=== PATIENT | female | born 1985 | race Caucasian/White ===

== ENCOUNTER 2016-09-28 13:00 | Inpatient (IN) | payer MEDICARE, MEDICAID ==
[~2016-09-28] VITALS: Ht 170.2 cm; Wt 72.6 kg
--- NOTE | ~2016-09-28 | PN ---
Unit #: [id number] #: [id number] Patient: JAE TRACY [id number] [facility] [address] [place] [address] [id number] I MR#: [id number] NAME: JAE TRACY ROOM: P210 Age: 31 Sex: F Admission Date: 09/28/2016 : 1985 Attending Physician: Pavan Montgomery M.D. Admitting Physician: Pavan Montgomery M.D. Primary Care Physician: Primary Care Physician Alee ALTAMIRANO NOTES DATE 09/30/2016 DISCUSSION The patient remains dysphoric and does report some sedation with reinitiation of her psychotropic medications. Otherwise she is pleasant and cooperative and we continue current treatment. Dictated by... Pavan Montgomery M.D. CB/markie TD: 09/30/2016 22:38 JOB #: [id number] TALI PROGRESS NOTES Page 1 of 1 X Pavan Montgomery MD X PROGRESS NOTE
--- NOTE | ~2016-09-28 | PA ---
Unit #: [id number] #: [id number] Patient: JAE TRACY [id number] [place] [address] [id number] MR#: [id number] NAME: JAE TRACY. ROOM: P210 Age: 31 Sex: F Admission Date: 09/28/2016 : 1985 Date of Assessment: 09/29/2016 Attending Physician: Pavan Montgomery M.D. Admitting Physician: Pavan Montgomery M.D. Primary Care Physician: Primary Care Physician No PSYCHIATRIC ASSESSMENT IDENTIFYING INFORMATION The patient is a 31-year-old white female well known to this physician. She is admitted voicing positive suicidal ideation and abuse of methamphetamine. CHIEF COMPLAINT None given. INFORMANT Patient, reliability is good. HISTORY OF PRESENT ILLNESS The patient is a 31-year-old white female last admitted to this facility in April of 2015. She had been a fairly "frequent flyer" at this facility but has not been hospitalized in nearly year and a half. The patient reports that she has been using methamphetamine. She is residing at this [place] [facility] and is currently on no prescribed psychotropic medications and has been offered prescribed psychotropic medications for some time. These include Abilify, BuSpar, and Topamax. The patient wishes to restart these medications when seen today. She was voicing positive suicidal ideation with plan to overdose. For more complete history of present illness, please refer to previously dictated notes. PAST PSYCHIATRIC HISTORY Reviewed, no changes. PAST MEDICAL HISTORY Reviewed, no changes. MEDICATIONS Abilify, BuSpar, Synthroid, Topamax, and Vistaril. ALLERGIES Valproic acid, Risperdal, Paxil, azithromycin, Wellbutrin, sulfa, and Depakote. FAMILY HISTORY Reviewed, no changes. SOCIAL HISTORY The patient is currently residing at the [facility]. She reports that her methamphetamine use is as noted previously, and is a Unit #: [id number] #: [id number] Patient: JAE TRACY smoker. MENTAL STATUS EXAMINATION Examination at this time reveals the patient to be an obese white female appearing stated age. She is in no apparent physical distress at the time of examination. She is awake, alert, and oriented in all spheres. Her mood is dysphoric, her affect blunted. Speech is generally well coherent. There are no gross deficits in memory or cognition noted. Intelligence is judged to be in the average range based on fund of knowledge. The patient is cooperative throughout the interview. She is currently endorsing positive suicidal ideation. She denies homicidal ideation. She denies any psychotic symptoms. Her judgment and insight appear to be reasonably intact. ASSETS AND LIABILITIES The patient's assets: Motivation for change. Liabilities: Poor compliance with treatment. Ongoing methamphetamine use. DIAGNOSTIC IMPRESSION 1. Bipolar disorder, depressed phase. 2. Methamphetamine use disorder. 3. Obesity. 4. Hypothyroidism. TREATMENT PLAN We will restart the patient's previously prescribed medications, and suicide precautions remain in place. She has done well when participating in the intensive outpatient program in the past, and referral for that program will take place upon discharge from the hospital which should take place within 3 to 7 days. Dictated by... Pavan Montgomery M.D. JEN/froy TD: 09/29/2016 12:43 JOB #: [id number] PSYCHIATRIC ASSESSMENT Page 1 of 1 X Pavan Montgomery MD X PSYCHIATRIC ASSESSMENT
--- NOTE | ~2016-09-28 | HP ---
Unit #: [id number] #: [id number] Patient: JAE TRACY [id number] [place] [address] [id number] MR#: [id number] NAME: JAE TRACY. ROOM: P210 Age: 31 Sex: F Admission Date: 09/28/2016 : 1985 Attending Physician: Pavan Montgomery M.D. Admitting Physician: Pavan Montgomery M.D. Primary Care Physician: Primary Care Physician No HISTORY AND PHYSICAL HISTORY OF PRESENT ILLNESS The patient is a 31-year-old female admitted to [address] [place] [address] on 09/28/2016 for suicidal ideations and methamphetamine abuse. PAST MEDICAL HISTORY 1. Hypothyroidism. 2. Seizure disorder. 3. Obesity. 4. History of anemia. 5. History of cervical dysplasia. 6. History of HSV. 7. GERD. 8. Methamphetamine abuse. PAST SURGICAL HISTORY Appendectomy. ALLERGIES Sulfa, valproic acid, divalproex, azithromycin, Paxil, Risperdal, bupropion, sertraline, Zyprexa and Geodon. SOCIAL HISTORY She is disabled. She lives alone. She uses alcohol and marijuana socially, methamphetamines 2 to 3 grams daily. FAMILY HISTORY Noncontributory. REVIEW OF SYSTEMS CONSTITUTIONAL: No fever or chills. HEENT: Denies any sore throat, ear pain or runny nose. CARDIOVASCULAR: Denies chest pain, irregular heart rhythm or palpitations. CHEST: Denies shortness of breath or cough. No hemoptysis. GASTROINTESTINAL: Denies nausea, vomiting, diarrhea or chronic constipation. ENDOCRINE: Denies history of increased thirst or urination. No recent significant weight loss or gain. GENITOURINARY: Denies dysuria, frequency, or hematuria. SKIN: Denies any rashes. HEMATOLOGIC: Denies history of increased bleeding or bruising. MUSCULOSKELETAL: Denies any hot, swollen joints. No generalized muscle pain. NEUROLOGIC: Denies problems with vision or speech. No frequent, severe Unit #: [id number] #: [id number] Patient: JAE TRACY headaches. No numbness, tingling or weakness in any extremities. Denies loss of bladder or bowel control. CURRENT MEDICATIONS 1. Abilify. 2. BuSpar. 3. Synthroid. 4. Topamax. 5. Vistaril. PHYSICAL EXAMINATION GENERAL: She is awake, alert, oriented, in no acute distress. VITAL SIGNS: Temperature 97.9, heart rate 81, respirations 16, blood pressure 135/87. HEIGHT: 5 feet 7. WEIGHT: 160 pounds. SKIN: Warm and dry without rash or lesion. HEENT: Normocephalic. TMs not viewed. Oral and nasal passages clear. Conjunctivae clear. PERRLA. EOMs intact. NECK: Supple without lymphadenopathy or thyromegaly. HEART: Regular rate and rhythm without murmur. LUNGS: Clear. ABDOMEN: Soft, nontender. : Not done. EXTREMITIES: No evidence of cyanosis, clubbing or edema. Moves all without focal deficit. NEUROLOGICAL: Grossly within normal limits. Cranial Nerves: II: Visual hebert are intact. III, IV AND : Extraocular movements are intact. Pupils are equal, round and reactive to light. V: Facial sensation is grossly normal. VII: Facial movements and expression are normal. VIII: Auditory acuity grossly intact. IX, X: Uvula is midline. Phonation is normal. XI: Patient shrugs shoulders and turns head normally. XII: Tongue protrudes in the midline. Sensory and Motor Function: Sensory and motor sensation is grossly normal. Motor: moves all extremities well. Coordination: Gait is normal. Deep Tendon Reflexes: Intact. IMPRESSION 1. Psychiatric admission. 2. Hypothyroidism. 3. Seizure disorder. 4. Obesity. 5. Gastroesophageal reflux disease. 6. Methamphetamine abuse. RECOMMENDATIONS PSYCHIATRIC: Per psychiatrist. MEDICAL: No contraindication to participate in facility's activities. MEDICAL PROGNOSIS Good. MEDICAL CONDITION Stable. Unit #: [id number] #: [id number] Patient: JAE TRACY Dictated by... Daniel Busch/alejandra TD: 09/29/2016 16:13 JOB #: [id number] HISTORY AND PHYSICAL Page 1 of 1 X DIPAK ORTIZ APRN HISTORY AND PHYSICAL
--- NOTE | ~2016-09-28 | PN ---
Unit #: [id number] #: [id number] Patient: JAE TRACY [id number] [facility] [address] [place] [address] [id number] MR#: [id number] NAME: JAE TRACY ROOM: P210 Age: 31 Sex: F Admission Date: 09/28/2016 : 1985 Attending Physician: Pavan Montgomery M.D. Admitting Physician: Pavan Montgomery M.D. Primary Care Physician: Primary Care Physician Alee CESAR PROGRESS NOTES DATE 10/01/2016 DISCUSSION The patient is abed today and is gently but firmly confronted by this physician regarding her poor compliance with the therapeutic activities within the milieu. She exhibits no signs of symptoms of withdrawal and is beginning to request discharge. She is tolerating reinitiation of medication apart from some mild over sedation. Dictated by... Pavan Montgomery M.D. CB/markie TD: 10/01/2016 22:42 JOB #: [id number] TALI PROGRESS NOTES Page 1 of 1 X Pavan Montgomery MD PROGRESS NOTE
--- NOTE | ~2016-09-28 | DS ---
Unit #: [id number] #: [id number] Patient: JAE TRACY [id number] [facility] [address] [place] [address] [id number] MR#: [id number] NAME: JAE TRACY. ROOM: P210 Age: 31 Sex: F Admission Date: 09/28/2016 : 1985 Discharge Date: 10/02/2016 Attending Physician: Pavan Montgomery M.D. Primary Care Physician: Primary Care Physician No DISCHARGE SUMMARY REASON FOR ADMISSION The patient is a 31-year-old white female, admitted with voicing positive suicidal ideation and recent abuse of alcohol, marijuana, and methamphetamine. HOSPITAL COURSE The patient was admitted to the [address] [place] [address] unit and restarted on previously prescribed home medications including Abilify, BuSpar, Synthroid, Topamax, and Vistaril. The patient's stay in the hospital was a fairly uneventful one. She remained seclusive to room with little participation with the therapeutic milieu. She denied suicidal ideation when seen by this physician on 10/02/2016 and requested discharge. She was at that time agreeable to plan for followup in the chemical dependency intensive outpatient program provided by this facility. Discharge was ordered. FINAL DIAGNOSES Bipolar disorder, most recent episode depressed; methamphetamine use disorder; alcohol use disorder; cannabis use disorder; obesity; hypothyroidism. DISPOSITION ON DISCHARGE The patient is discharged on the following medications: Topamax 25 mg b.i.d. for anxiety, Abilify 5 mg q.a.m. for mood stabilization, BuSpar 10 mg b.i.d. for anxiety, Vistaril 50 mg q.6 hours p.r.n. anxiety, Synthroid 0.025 mg daily for hypothyroidism. DISCHARGE INSTRUCTIONS No dietary or physical restrictions were placed upon the patient at the time of discharge. FOLLOWUP She will follow up through the auspices of community mental health resources and the intensive outpatient program provided by this facility. PROGNOSIS Her prognosis is considered fair. Dictated by... Pavan Montgomery M.D. JEN/kevin Unit #: [id number] #: [id number] Patient: JAE TRACY TD: 10/02/2016 15:21 JOB #: [id number] DISCHARGE SUMMARY Page 1 of 1 X Pavan Montgomery MD DISCHARGE SUMMARY
[~2016-09-28 13:00] MED LIST: ABILIFY PO; ABILIFY30 MG PO; ALPRAZOLAM PO; AMBIEN10 MG PO; B/P MED; BENTYL20 MG PO; FLEXERIL PO; FLEXERIL10 MG PO; IBUPROFEN800 MG PO; KLONOPIN PO; KLONOPIN1 MG PO; LIDOCAINE VISCOU1 ML EXT; LORTAB 7.51 TAB 7.5/; LORTAB 7.51 TAB 7.5/ MT; LORTAB 7.51 TAB 7.5/ PO; MOTRIN400 MG PO; ORAL DIABETIC MED; PROZAC40 MG PO; SINGULAIR PO; TOPAMAX PO; TRILEPTAL PO; VICODIN 5/500 T1 TAB PO; XANAX XR2 MG PO
[2016-09-29 10:55] LABS: URINE APPEARANCE CLOUDY; URINE BILIRUBIN NEG (NEG); URINE BLOOD NEG (NEG); URINE COLOR YELLOW; URINE GLUCOSE NEG (NEG); URINE KETONE NEG (NEG); URINE LEUKOCYTE ESTERASE 2+ (NEG); URINE NITRATE NEG (NEG); URINE PH 7.5 (5-8); URINE PROTEIN NEG (NEG); URINE SPECIFIC GRAVITY 1.023 (1.003-1.035)
[2016-09-29 10:59] LABS: URBCS1 AUWI 0-2 /[HPF] (0-2); URINE BACTERIA AUWI 2+ (NEGATIVE); URINE SQUAMOUS EPITHELIAL CELL MANY /[HPF]; UWBCS1 AUWI 25-50 (0-5)
[2016-09-29 11:56] LABS: AMPHETAMINE POS (NEG); BARBITURATES NEG (NEG); BENZODIAZEPINES NEG (NEG); COCAINE NEG (NEG); MARIJUANA NEG (NEG); OPIATES NEG (NEG); TRICYCLIC ANTIDEPRESSANTS NEG (NEG); U METHADONE NEG (NEG)
== END 2016-10-02 14:05 | DRG 885 ==
LOC: P2S 15:35
PROVIDERS: Specialist
DX: F31.9 Bipolar disorder, unspecified (principal); G40.909 Epilepsy, unspecified, not intractable, without status epilepticus; F15.10 Other stimulant abuse, uncomplicated; E66.9 Obesity, unspecified; E03.9 Hypothyroidism, unspecified; Z88.2 Allergy status to sulfonamides
CPT/HCPCS: 80307; 81003